=== PATIENT | female | born 1965 | race Hispanic/Latino ===

== ENCOUNTER → 2017-10-19 | Outpatient (CLI) | payer OTHER ==
--- NOTE | 2017-10-19 13:40 | Diagnostic Imaging Report ---
PROCEDURE:FOOT COMPLETE BILATERAL INDICATION:Foot pain COMPARISON:None. FINDINGS: No acute fracture or dislocation. No periosteal reaction, erosion, or abnormal soft tissue calcification. Mild degenerative changes of the bilateral first metacarpophalangeal joints. CONCLUSION: No acute osseous abnormalities of the bilateral feet. Dictated by: Yohan Vazquez M.D. on 10/19/2017 at 13:42 Electronically approved by: Yohan Vazquez M.D. on 10/19/2017 at 13:42
== END ==
LOC: RAD 12:35
PROVIDERS: ATTEND Family Medicine
DX: M79.672 Pain in left foot (principal); M79.671 Pain in right foot

== ENCOUNTER 2019-12-03 11:11 | Emergency (ER) | payer SELFPAY ==
[~2019-12-03] VITALS: Ht 152.4 cm; Wt 69.9 kg
--- OUTSIDE RECORDS SUMMARY | 2019-12-03 11:13 | XMS REPORT | Continuity of Care Document ---
Author Author [facility] Organization [facility] Address [address] [place] [address] Phone Unavailable Care Team Providers Care Special Procedures Tech Name Role Phone FRANCHESKA FAGAN Attadryan Unavailable Problems This patient has no known problems. Allergies, Adverse Reactions, Alerts This patient has no known allergies or adverse reactions. Medications This patient has no known medications. Procedures This patient has no known procedures. Results Test Description Test Time Test Comments Results Result Comments Source SCR MAMM BILATERAL SACHI CAD DIGITAL 2019-08-15 16:52:22 - SCR MAMM BILATERAL SACHI CAD DIGITALBILATERAL DIGITAL SCREENING MAMMOGRAM 3D/2D WITH CAD: 08/08/2019CLINICAL: Asymptomatic. Digital breast tomosynthesis was performed in addition to routine CC and MLO views. Current mammographic images were evaluated by either a YesGraph M-Vu or a [employer] ImageChecker CAD (computer aided detection system). Comparison is made to exams dated 08/05/2018 mammogram, 2017 mammogram, and 08/07/2016 mammogram - [facility]. The tissue of both breasts is heterogeneously dense. This may lower the sensitivity of mammography. There are benign calcifications in the left breast. There also are post operative findings in the left breast. No suspicious mass, architectural distortion, malignant type calcification, or lymph node abnormality detected. Breast architecture is stable compared to prior exams.IMPRESSION: BENIGNThere is no mammographic evidence of malignancy. Dina Hitchcock M.D. dm/penrad:08/15/2019 16:52:22 Entry: - 08/16/2019 08 :17:17copy to: Tiera Plasencia MD, ph: [phone], fax: [phone] Technologist: Nae Morgan , [facility] BI-RADS: 2 Benign BREAST ULTRASOUND BILATERAL 2019-08-09 07:57:00 - BREAST ULTRASOUND BILATERALULTRASOUND OF BOTH BREASTS AND BOTH AXILLA: 08/08/2019CLINICAL: Dense breasts. Comparison is made to exams dated 08/08/2019 mammogram, 08/05/2018 ultrasound, 08/11/2017 ultrasound, and 08/07/2016 ultrasound - [facility]. Real-time ultrasound of both breasts and both axilla and clinical breast exam were performed. No abnormalities were seen sonographically in e ither breast or either axilla. Clinical breast exam was unremarkable.IMPRESSION: NEGATIVE There is no sonographic evidence of malignancy. Patient has been informed that she has areas of dense breast tissue that could make it difficult to find a small cancer. A screening mammogram and supplemental ultrasound for dense breast tissue is recommended in 1 year.Dina Hitchcock M.D. dm/:08/09/2019 07:57:00 copy to: Tiera Plasencia MD, ph: [phone], fax: [phone] Technologist: Alanna Scott , [facility] BIRADS 1-2 Combo FU Letter Ultrasound BI-RADS: 1 Negative BREAST ULTRASOUND BILATERAL 2018-08-05 10:07:46 - BREAST ULTRASOUND BILATERALULTRASOUND OF BOTH BREASTS AND BOTH AXILLA: 08/05/2018CLINICAL: Supplemental Screening for Dense Breast. Comparison is made to exams dated 08/11/2017 ultrasound, 08/07/2016 ultrasound, and 08/10/2015 ultrasound - [facility]. Real-time ultrasound of both breasts and both axilla was performed. No abnormalities were seen sonographically in either breast or eithe r axilla. Clinical breast exam unremarkable.IMPRESSION: NEGATIVE There is no sonographic evidence of malignancy. Patient has been informed that she has areas of dense breast tissue that could make it difficult to find a small cancer. A screening mammogram and supplemental ultrasound for dense breast tissue is recommended in 1 year.Dina Hitchcock M.D. dm/:08/05/2018 10:07:46 copy to: Tiera Plasencia M.D., ph: [phone], fax: [phone] Technologist: Olimpia Dixon , [facility] BIRADS 1-2 Combo FU Letter Ultrasound BI-RADS: 1 Negative SCR MAMM BILATERAL CAD DIGITAL 2018-08-05 10:05:18 - SCR MAMM BILATERAL CAD DIGITALBILATERAL DIGITAL SCREENING MAMMOGRAM WITH CAD: 08/05/2018CLINICAL: Asymptomatic. Current mammographic images were evaluated by either a YesGraph M- Vu or a [employer] ImageChecker CAD (computer aided detection system). Comparison is made to exams dated 08/11/2017 mammogram, 08/07/2016 mammogram, and 08/10/2015 mammogram - [facility]. The tissue of both breasts is heterogeneously dense. This may lower the sensitivity of mammography. There are post operative findings in the left breast. No suspicious mass, architectural distortion, malignant type calcification, or lymph node abnormality detected. IMPRESSION: NEGATIVEUltrasound pending for additional evaluation. There is no mammographic evidence of malignancy. Dina Hitchcock M.D. dm/penrad: 019 10:05:18 Entry: cp - 08/10/2018 09:19:10copy to: Tiera Plasencia M.D., ph: [phone], fax: [phone] Technologist: Leeanne Teresa , [facility] BI-RADS: 1 Negative FOOT COMPLETE BILATERAL [place] [address] Patient Name: JUNE TORRES MR #: [id number] : 1965 Age/Sex: 52/F Req #: [id number] Adm Physician: Ordered by: RYLAN VARGAS, FRANCHESKA Fournier MD Report #: [id number] Location: RAD Room/Bed: Procedure: [id number] DX/FOOT COMPLETE BILATERAL Exam Date: 10/19/17 Exam Time: 1220 REPORT STATUS: Signed PROCEDURE: FOOT COMPLETE BILATERAL INDICATION: Foot pain COMPARISON: None. FINDINGS: No acute fracture or dislocation. No periosteal reaction, erosion, or abnormal soft tissue calcification. Mild degenerative changes of the bilateral first metacarpophalangeal joints. CONCLUSION: No acute osseous abnormalities of the bilateral feet. Dictated by: Yohan Zamora M.D. on 10/19/2017 at 13:42 Electronically approved by: Yohan Zamora M.D. on 10/19/2017 at 13:42 Dictated By: YOHAN ZAMORA MD 1342 Transcribed By: MEAGAN on 10/19/17 1342 COPY TO: FRANCHESKA FAGAN
[2019-12-03] MEDS ORDERED: IBUPROFEN 600 MG TAB PO STA (12:19)
[2019-12-03] MEDS ORDERED: IBUPROFEN 200 MG TAB ONE (12:28)
--- NOTE | 2019-12-03 13:12 | Emergency Department Note ---
History of Present Illnes History of Present Illness Chief Complaint: Eye, Ear, Nose, Throat, Dental History of Present Illness This is a 54 year old female with onset of low grade temp, body aches and headache that started yesterday afternoon. She denies any significant nausea, vomiting, diarrhea, cough, nasal congestion, or other rest upper respiratory symptoms. She denies any known sick contacts or travel. [facility], but was not seen due to lack of an appointment. She denies any chest pain, shortness of breath, or dyspnea on exertion. Historian: Patient Arrival Mode: Car History limited by: language barrier Hand Screen Printer Required: Yes (Language line not working. Pt called her adult daughter, who translated via phone;) Location: see HPI Quality: See HPI Severity: mild Onset quality: sudden Duration (how long): day(s) (1) Timing of current episode: intermittent Progression: waxing and waning Chronicity: new Relieving factors: none Exacerbating factors: none Associated symptoms: fever/chills, headaches Treatments prior to arrival: none Risk factors: history of breast cancer in 2013 Past Medical/Family History Physician Review I have reviewed the patient's past medical and family history. Any updates have been documented here. Past Medical History Recent Fever: No Clinical Suspicion of Infectio: No New/Unexplained Change in Ment: No Past Medical History: Cancer (Breast in 2013) Past Surgical History: Lumpectomy (with lymph node removal) Social History Smoking Cessation: Never Smoker Counseling Performed: No Alcohol Use: None Any Illegal Drug Use: No TB Exposure/Symptoms: No Physically hurt or threatened: No Family History Family history of heart diseas: No Other Last Tetanus: unk Any Pre-Existing Lines (PICC,: No Is patient up to date on immun: Yes Last Flu: 2019 Last Pneumovax: unk Review of Systems Review of Systems Constitutional: fever, malaise EENTM: no symptoms Cardiovascular: no symptoms Respiratory: no symptoms Gastrointestinal: no symptoms Genitourinary: no symptoms Musculoskeletal: muscle pain (body aches) Neurological: no symptoms, headache Psychological: no symptoms Endocrine: no symptoms Review of other systems All other systems reviewed and negative. Physical Exam Related Data Triage Vital Signs Vital Signs Date Time Temp Pulse Resp B/P (MAP) Pulse Ox O2 Delivery O2 Flow Rate FiO2 12/03/19 11:37 98.3 96 18 146/74 100 Vital signs reviewed: Yes Physical Exam CONSTITUTIONAL Constitutional: well-developed, well-nourished HENT HENT: normocephalic, atraumatic, oropharynx clear/moist, nose normal HENT L/R: left ext ear normal, right ext ear normal EYES Eyes: PERRL, conjunctivae normal NECK Neck: ROM normal PULMONARY Pulmonary: effort normal, breath sounds normal CARDIOVASCULAR Cardiovascular: regular rhythm, heart sounds normal, capillary refill normal, normal rate GASTROINTESTINAL Abdominal: soft, nontender, bowel sounds normal GENITOURINARY SKIN Skin: warm, dry MUSCULOSKELETAL Musculoskeletal: ROM normal NEUROLOGICAL Neurological: alert, oriented x 3, no gross motor or sensory deficits PSYCHOLOGICAL Psychological: mood/affect normal, judgement normal Results Laboratory Laboratory UA - negative Influenza - negative Rapid Strep - negative Lab results reviewed: Yes Critical Care Time Subsequent provider I assumed direction of critical care for this patient from another provider of my specialty. Assessment & Plan Assessment & Plan Final Impression: (1) Viral syndrome Assessment & Plan - Drink plenty of fluids and rest - For fever, headache and body aches, you may take Ibuprofen 200 mg - 3 tabs together every 6 hours, as needed. This may be alternated with Extra Strength Tylenol 500 mg - 2 tabs together every 4 hours, as needed. - Return to the emergency room if symptoms worsen, if you develop cough, shortness of breath, or chest pain. - Follow-up at one of the screening sites for COVID 19 testing, if desired. Patient voiced understanding of the plan. - Discharge instructions were reviewed with patient, via her daughter, who translated by cell phone. Depart Disposition: HOME, SELF-CARE Last Vital Signs Date Time Temp Pulse Resp B/P (MAP) Pulse Ox O2 Delivery O2 Flow Rate FiO2 12/03/19 11:37 98.3 96 18 146/74 100 Medications in the ED Ibuprofen 600 mg ONCE STAT PO ; Start 12/03/19 at 12:19; Stop 12/03/19 at 12:20; Status MARY ARAGON MD Dec 03, 2019 13:12
== END 2019-12-03 12:51 | disposition home or self-care (01) ==
LOC: FSED 11:11
DX: R50.9 Fever, unspecified (principal); R51 Headache; B34.9 Viral infection, unspecified; Z85.3 Personal history of malignant neoplasm of breast
CPT/HCPCS: 81003; 83518; 87400; 99283